=== PATIENT | female | born 1950 | race Caucasian/White ===

== ENCOUNTER 2019-02-23 16:38 | Emergency (ER) | payer OTHER ==
[2019-02-23 17:15] VITALS: TEMP 98.2; BMI 20.7
--- NOTE | 2019-02-23 17:18 | PDOC ---
Rapid Medical Evaluation Chief Complaint: Altered Mental Status Time Seen by Provider: 02/23/19 17:12 Medical Evaluation: Allergies Allergy/AdvReac Type Severity Reaction Status Date / Time No Known Allergies Allergy Verified 02/23/19 17:15 Vital Signs Temp Pulse Resp BP Pulse Ox 98.2 F 89 18 201/112 H 98 02/23/19 17:14 02/23/19 17:14 02/23/19 17:14 02/23/19 17:14 02/23/19 17:14 02/23/19 17:16 I have performed a brief in-person evaluation of this patient. The patient presents with a chief complaint of: no sig PMhx presenting BRADEN and feeling confused since this AM. Denies blurry vision, change in vision, N/V Pertinent physical exam findings: severely elevated BPs. A &O X 3 in NAD. normal facial symmetry. EOMI b/l . HASMUKH b/l. no facial drooling I have ordered the following: head CT w/o contrast The patient will proceed to the ED for further evaluation Discharge Disposition - Diagnosis Confusion and disorientation, Elevated blood pressure reading in office without diagnosis of hypertension - Discharge Dispostion Condition at time of disposition: Stable - Referrals - Patient Instructions - Post Discharge Activity
[2019-02-23 17:58] VITALS: BP 197/101; PULSE 86
--- NOTE | 2019-02-23 19:11 | PDOC ---
History of Present Illness - General Chief Complaint: Altered Mental Status Stated Complaint: AMS Time Seen by Provider: 02/23/19 17:12 History Source: Patient Exam Limitations: No Limitations - History of Present Illness Initial Comments: 02/23/19 19:07 68YOF who p/w sudden onset headache bitemporal and frontal headache unlike any BRADEN she has had in the past, at 10/10 since this morning at 11:15 am. She additionally notes mental fogginess/confusion since this morning at the onset of pain. She took ASA after the onset thinking it may help with the pain, but it did not. She reiterates that the BRADEN started suddenly and she does not get headaches like this. She denies f/c/n/v/d/c, vertigo, lightheadedness, vision changes, neck pain, n/t/w focally, or any additional symptoms. Past History - Past Medical History Allergies/Adverse Reactions: Allergies Allergy/AdvReac Type Severity Reaction Status Date / Time No Known Allergies Allergy Verified 02/23/19 17:15 COPD: No - Suicide/Smoking/Psychosocial Hx Smoking History: Never smoked Review of Systems - Review of Systems Able to Perform ROS?: Yes Comments:: headache, confusion *Physical Exam - Vital Signs Last Vital Signs Temp Pulse Resp BP Pulse Ox 98.2 F 86 16 197/101 H 100 02/23/19 17:14 02/23/19 17:54 02/23/19 17:54 02/23/19 17:54 02/23/19 17:54 - Physical Exam Comments: nl, gait nl, milind uncomfort, family at bedside Procedures - Lumbar Puncture Indication: Headache CT Scan: Yes Betadine Prep: Yes Position: Right lateral decubitus Site: L4-L51 (L4-L5) Local Anesthesia: 1% Lidocaine with epi Volume(ml): 3 Lumbar Puncture Kit: Adult Needle Size(gauge): 20 Opening Pressure(mmHg): 18 Traumatic Tap: No Tubes Obtained: 4 Clear Fluid: Yes Complications: No Progress: patient tolerate procedure well, kept laying flat x1 hour ED Treatment Course - LABORATORY CBC & Chemistry Diagram: 02/23/19 19:44 02/23/19 19:44 Medical Decision Making - Medical Decision Making 02/23/19 19:10 Previously health 68YOF p/w sudden onset headache unlike any prior headache, mental fogginess, also high BP here. Initial Vital Signs Temp Pulse Resp BP Pulse Ox 98.2 F 89 18 201/112 H 98 02/23/19 17:14 02/23/19 17:14 02/23/19 17:14 02/23/19 17:14 02/23/19 17:14 Exam: As noted in Physical Exam section. DDX IBNLT: c/f SAH given the patient's story with BRADEN red flags. stress/pain response, primary (essential) HTN, renal disease, medications (e.g. OCPs, NSAIDs , antidepressants, steroids), hypercortisolism (Nava syndrome), primary hyperaldosteronism (Conn syndrome), pheochromocytoma, hyper/hypothyroidism, hyperparathyroidism, coarctation of aorta, obstructive sleep apnea, etc. Main emergency concern is to r/o hypertensive emergency or SAH W/U ordered: Labs as noted below, HCT, EKG TX ordered: Ofirmev EKG: Reviewed; results as noted in ECG Review section. CTH: Nothing acute 02/23/19 23:43 LP has been performed with the assistance of Dr. Gerard, see Procedures section. CAF with WBC count 8 and RBC count 0 in tube #4. Normal WBC count for tube #4 should be <5, but lab notes their limits are usually less than 10. I have requested they do the differential for tube #4 anyway. I have also placed an order and verbally requested CSF profile with cell count and differential on Tube #1. I have also placed an order and verbally requested micro/culture on Tube #3. The patient states feeling improved, still residual headache, sleeping. 02/24/19 00:06 The patient and her wish to sign out AMA. I have an extensive conversation with them about the risks of sentient bleed, SAH, other ICH, and possibility of [employer] infection. They are both very reasonable and they understand the risks and still choose to go home. They are willing to sign out AMA and will call in the morning for pending results of CSF. She is instructed not to take any pain medications except for Tylenol because they can thin her blood and worsen bleeding. She is specifically instructed not to take any ASA. BP at this time is 135/68 and the patient is ambulatory, comfortable, not confused/denies fogginess. She continues to deny any neurological symptoms. AMA paperwork is completed and signed by all parties. *DC/Admit/Observation/Transfer Diagnosis at time of Disposition: Confusion and disorientation, Elevated blood pressure reading in office without diagnosis of hypertension, Headache - Discharge Dispostion Disposition: AGAINST MEDICAL ADVICE Condition at time of disposition: Stable - Referrals Referrals: Anna Pagan MD [Primary Care Provider] - - Patient Instructions Printed Discharge Instructions: DI for Lumbar Puncture, DI for Headache Additional Instructions: You were seen in the ER for a severe headache, mental fogginess, and high blood pressure. We were concerned for bleeding within your brain and we did labs, a head CT, and a lumbar puncture (spinal tap). The head CT appears normal and your labs appear normal, but the cerebrospinal fluid results are still pending. You decided to sign out against medical advice instead of waiting for the results because the medications we gave you here in the ER made you feel much more comfortable and resolved your symptoms. Please do not take any aspirin or NSAID medications (no ibuprofen, Aleve, or any other NSAID). Have your family watch you closely and return to the ER immediately if you have any new or worsening symptoms, especially worsening headache, worsening confusion, vision changes, numbness, tingling, weakness/paralysis, speech problems, vertigo, balance problems, or any other new/worsening symptoms. Please return to the ER if you change your mind and wish to continue your workup here in the ER. Please follow up with your primary doctor in the morning - call their office and make an LENA appointment for later today. - Post Discharge Activity
[2019-02-23 20:17] LABS: BASO % 0.7 % (0-2.0); EOS % 1.7 % (0-4.5); HEMATOCRIT 38.1 % (32.4-45.2); HEMOGLOBIN 12.7 GM/dL (10.7-15.3); LYMPH % 21.5 % (8-40); MCH 29.3 pg (25.7-33.7); MCHC 33.4 g/dl (32.0-36.0); MEAN CELL VOLUME 87.9 fl (80-96); MEAN PLT VOLUME 7.9 fl (7.5-11.1); MONO % 9.6 % (3.8-10.2); NEUT % 66.5 % (42.8-82.8); PLATELET COUNT 234 K/MM3 (134-434); RBC 4.34 M/mm3 (3.60-5.2); WHITE BLOOD COUNT 8.9 K/mm3 (4.0-10.0)
[2019-02-23] MEDS ORDERED: ACETAMINOPHEN 1000 MG/100 ML VIAL (NON FORMULARY) IVPB ONE (20:19)
[2019-02-23] MEDS ORDERED: LIDOCAINE HCL 1%, 10 MG/ML (50 mL VIAL) INF ONE (20:30)
[2019-02-23] MEDS ORDERED: ACETAMINOPHEN INJECTION 100 ML IVPB ONE (20:34)
[2019-02-23] MEDS ORDERED: LIDOCAINE HCL 1%, 10 MG/ML (20ML VIAL) ONE (20:34)
[2019-02-23 20:41] LABS: ALBUMIN 3.8 g/dl (3.4-5.0); BILIRUBIN,TOTAL 0.4 mg/dL (0.2-1); BLOOD UREA NITROGEN 20.5 mg/dL (7-18); CALCIUM 8.7 mg/dL (8.5-10.1); POTASSIUM 3.4 mmol/L (3.5-5.1); TOT PROT 6.8 g/dl (6.4-8.2)
[2019-02-23 22:55] LABS: CSF APPEARANCE CLEAR; CSF COLOR COLORLESS; CSF WBC 8
--- NOTE | 2019-02-24 00:03 | PDOC ---
Documentation entered by Trevor Gan SCRIBE, acting as scribe for Dede Ramos DO. Dede Ramos DO: This documentation has been prepared by the Malik martinez Joel, SCRIBE, under my direction and personally reviewed by me in its entirety. I confirm that the documentation accurately reflects all work , treatment, procedures, and medical decision making performed by me. Attending Attestation - Resident Resident Name: TilaStephy - ED Attending Attestation I have performed the following: I have examined & evaluated the patient, The case was reviewed & discussed with the resident, I agree w/resident's findings & plan - HPI HPI: 02/23/19 20:36 The patient is a 68 year old female with no significant PMH who presents to the emergency department with sudden onset of retro-orbital headache earlier today. She states her headache today is unlike her previous headaches, and also presents with high blood pressure upon arrival. The patient denies any neck stiffness, trauma, no known disturbances. She denies fevers and rash. The patient denies chest pain, shortness of breath, and dizziness. Denies chills, nausea, vomit, diarrhea and constipation. Denies dysuria, frequency, urgency and hematuria. Allergies: NKA Past surgical history: None reported. Social history: No reported cigarette, alcohol, or drug use. PCP: Dr. Anna Pagan - Physicial Exam PE: 02/23/19 20:36 Agree with resident exam. - Medical Decision Making 02/24/19 00:02 68-year-old female with severe retro-orbital headache and elevated blood pressure CT scan showed no acute abnormalities Lumbar puncture was performed, tube for analysis shows 8 white blood cells There are 0 red blood cells and no xanthochromia At this time remainder of CSF analysis is pending Patient is feeling much better with decreased blood pressure and would like to sign out AGAINST MEDICAL ADVICE She was made aware by the emergency department resident that she may have undiagnosed illnesses that have not been fully evaluated, patient and family both voiced their understanding and have been advised to follow-up tomorrow
[2019-02-24 00:16] LABS: BF GLUCOSE (CSF ONLY) 54 mg/dL (40-70)
--- NOTE | 2019-02-24 17:08 | PDOC ---
Patient Follow-up (Call Back) - Post ED Follow - Up Condition at time of discharge: Stable Disposition at time of original discharge: AGAINST MEDICAL ADVICE - Disposition Additional Instructions/Notes: Received call from [facility] neurology requesting results of gram stain for CSF, which we reviewed. Also asked if it would be possible to add on a viral culture , West Nile, and Lyme to the CSF. I contacted the lab, who stated they will leave a message for the tech who handles it, who went home for the day, will be back tomorrow. Recommended that the neurologist call back tomorrow to followup if anything can be added.
--- NOTE | 2019-02-25 10:20 | EKG ---
Test Reason : Blood Pressure : / mmHG Vent. Rate : 084 BPM Atrial Rate : 084 BPM P-R Int : 180 ms QRS Dur : 090 ms QT Int : 370 ms P-R-T Axes : 069 044 041 degrees QTc Int : 437 ms NORMAL SINUS RHYTHM POSSIBLE LEFT ATRIAL ENLARGEMENT BORDERLINE ECG NO PREVIOUS ECGS AVAILABLE Confirmed by NELSON LE, DARSHAN ([id number]) on 02/25/2019 10:19:51 AM Referred By: Confirmed By:DARSHAN DAMON MD
== END 2019-02-24 00:26 | disposition left against medical advice (07) ==
LOC: JER 16:38
PROC: 3E033NZ Introduction of Analgesics, Hypnotics, Sedatives into Peripheral Vein, Percutaneous Approach (ICD-10-PCS; principal; 2019-02-23)
PROC: 3E023BZ Introduction of Anesthetic Agent into Muscle, Percutaneous Approach (ICD-10-PCS; 2019-02-23)
PROC: 009U3ZX Drainage of Spinal Canal, Percutaneous Approach, Diagnostic (ICD-10-PCS; 2019-02-23)
DX: R51 Headache (principal); R41.0 Disorientation, unspecified; R03.0 Elevated blood-pressure reading, without diagnosis of hypertension
CPT/HCPCS: 36415; 70450-TC; 80053; 82945; 84157; 84484; 85025; 86617; 86788; 86789; 87070; 87205; 87252; 93005; 93010; 99283-25; J0131